=== PATIENT | male | born 1995 | race Caucasian/White ===

== ENCOUNTER 2016-07-03 00:32 | Emergency (ER) | payer MEDICAID ==
--- NOTE | 2016-07-03 00:58 | Emergency Department Record ---
History of Present Illness - General Chief Complaint: General Stated Complaint: WANTS TUMOR IN CHEST CHECKED Time Seen by Provider: 07/03/16 00:51 Source: Patient Mode of Arrival: Ambulatory Limitations: No limitations - History of Present Illness Initial comments: The patient is here due to wanting a tumor in his chest checked out. He was told he had a fatty benign tumor under his L nipple 4 years ago. 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 He denies any pain or discomfort. Onset/Timin -: Month(s) Location: Left, Chest Radiation: Non-Radiating Consistency: Constant - Related Data Home Medications Medication Instructions Recorded Confirmed Last Taken No Home Med [NO HOME MEDS] 12/02/14 07/03/16 Unknown Allergies Allergy/AdvReac Type Severity Reaction Status Date / Time acetaminophen [From Tylenol] Allergy ITCHING Verified 12/02/14 18:51 codeine Allergy ITCHING Verified 12/02/14 18:51 ibuprofen [From Motrin] Allergy ITCHING Verified 12/02/14 18:51 tramadol Allergy HIVES Verified 12/02/14 18:52 Travel Screening - Travel/Exposure Within Last 30 Days Have you traveled within the last 30 days?: No - Travel Symptoms Symptom Screening: None Review of Systems Constitutional: Denies: Chills, Fever Eyes: Denies: Eye discharge ENT: Denies: Congestion Respiratory: Denies: Cough, Dyspnea Past Medical History - SOCIAL HISTORY Smoking Status: Current every day smoker Drug Use: None Drug Use Detail:: Marijuana - RESPIRATORY Hx Respiratory Disorders: No - CARDIOVASCULAR Hx Cardio Disorders: No - NEURO Hx Neuro Disorders: No - GI Hx GI Disorders: No - Hx Genitourinary Disorders: No - ENDOCRINE Hx Endocrine Disorders: No - MUSCULOSKELETAL Hx Musculoskeletal Disorders: No - PSYCH Hx Psych Problems: Yes Hx Anxiety: Yes - HEMATOLOGY/ONCOLOGY Hx Hematology/Oncology Disorders: No Comment:: bi-polar Family Medical History Any Significant Family History?: Yes Hx Alcohol Use: Father Physical Exam - General General Appearance: Alert, Oriented x3, Cooperative, No acute distress - Head Head exam: Atraumatic, Normocephalic, Normal inspection - Eye Eye exam: Normal appearance, PERRL - Neck Neck exam: Normal inspection, Full ROM. negative: Tenderness - Respiratory Respiratory exam: Normal lung sounds bilaterally. negative: Chest wall tenderness (There is a 1x 2 cm soft nontender easily movable mass under the L nipple. There is no overlying swelling, erythema or bruising.), Respiratory distress - Cardiovascular Cardiovascular Exam: Regular rate, Normal rhythm, Normal heart sounds - GI/Abdominal GI/Abdominal exam: Soft, Normal bowel sounds. negative: Tenderness Course Vital Signs 07/03/16 00:50 Pulse Rate [ 109 H Pulse Ox Probe] Respiratory 18 Rate Blood Pressure 125/72 [Left Arm] Pulse Ox 96 - Reevaluation(s) Reevaluation #1: I did review the patient's US from 2012 and it did demonstrate a 1x2 cm fatty tumor. I explained to the patient that he will need to see a PCP to get another US ordered. The patient understands and will comply. 07/03/16 01:02 Disposition Disposition: Discharge Clinical Impression: Chest wall mass Disposition: Home, Self-Care Condition: (1) Good Instructions: Chest Wall Pain (ED) Additional Instructions: Please see a family doctor for further evaluation and to have another US ordered of your L breast. Forms: Patient Portal Access Time of Disposition: 01:04
== END 2016-07-03 01:20 | disposition home or self-care (01) ==
LOC: ER 00:32
DX: R22.2 Localized swelling, mass and lump, trunk (principal)
CPT/HCPCS: 99282

== ENCOUNTER 2016-07-20 16:28 | Emergency (ER) | payer MEDICAID ==
--- NOTE | 2016-07-20 16:58 | Emergency Department Record ---
History of Present Illness - General Chief Complaint: Laceration(s) Stated Complaint: LAC ON FINGER Time Seen by Provider: 07/20/16 16:49 Source: Patient Mode of Arrival: Ambulatory Limitations: No limitations - History of Present Illness Initial Commments: The patient is here due to wanting his L hand 2nd finger sutured. He injured his L 2nd finger 5 days ago and sustained a laceration dorsally just distal to the PIP joint. He went somewhere in [place] and had it sutured either 5 or 7 days ago. He also was told he had a tendon laceration and needs to see a surgeon. The sutures fell out today and the laceration is opening up minimally and now he wants it re-sutured. He denies any pain or any new issues. Onset/Timin -: Week(s) Location: Other Place: Work Context: Accidental Associated Symptoms: None - [place] Coma Scale Eye Response: (4) Open spontaneously Motor Response: (6) Obeys commands Verbal Response: (5) Oriented [place] Total: 15 - Related Data Hx Tetanus Toxoid Vaccination: Yes Year of Tetanus Vaccination: 2014 Patient Tetanus UTD (within 5 yrs): Yes Home Medications Medication Instructions Recorded Confirmed Last Taken No Home Med [NO HOME MEDS] 12/02/14 07/20/16 Unknown Allergies Allergy/AdvReac Type Severity Reaction Status Date / Time acetaminophen [From Tylenol] Allergy ITCHING Verified 07/20/16 16:48 codeine Allergy ITCHING Verified 07/20/16 16:48 ibuprofen [From Motrin] Allergy ITCHING Verified 07/20/16 16:48 tramadol Allergy HIVES Verified 07/20/16 16:48 Travel Screening - Travel/Exposure Within Last 30 Days Have you traveled within the last 30 days?: No Past Medical History - SOCIAL HISTORY Smoking Status: Current every day smoker Alcohol Use: None Drug Use: None - RESPIRATORY Hx Respiratory Disorders: No - CARDIOVASCULAR Hx Cardio Disorders: No - NEURO Hx Neuro Disorders: No - GI Hx GI Disorders: No - Hx Genitourinary Disorders: No - ENDOCRINE Hx Endocrine Disorders: No - MUSCULOSKELETAL Hx Musculoskeletal Disorders: No - PSYCH Hx Psych Problems: Yes Hx Anxiety: Yes - HEMATOLOGY/ONCOLOGY Hx Hematology/Oncology Disorders: No Comment:: bi-polar Family Medical History Any Significant Family History?: Yes Hx Alcohol Use: Father Physical Exam - General General Appearance: Alert, Cooperative, No acute distress - Head Head exam: Atraumatic, Normocephalic, Normal inspection - Eye Eye exam: Normal appearance, PERRL - Extremities Extremities exam: Tenderness (There is mild tenderness at the site but no signs of infection.). negative: Normal inspection, Full ROM (There is decreased extension of the L 2nd finger. There is a 21.5 cm superficial lac present that does not open up. ) Course Vital Signs 07/20/16 16:43 Temperature 98.5 F Pulse Rate 91 H Respiratory 16 Rate Blood Pressure 129/61 Pulse Ox 97 - Reevaluation(s) Reevaluation #1: The finger was steri-stripped without difficulty. He was advised to see the surgeon next week. 07/20/16 16:57 Disposition Disposition: Discharge Clinical Impression: Finger injury Qualifiers: Encounter type: sequela Laterality: left Qualified Code(s): S69.92XS - Unspecified injury of left wrist, hand and finger(s), sequela Disposition: Home, Self-Care Condition: (1) Good Instructions: Laceration (ED) Additional Instructions: Keep the laceration clean and dry for 2 days. Please see the hand surgeon as previously advised. Forms: Patient Portal Access Time of Disposition: 16:58
== END 2016-07-20 17:03 | disposition home or self-care (01) ==
LOC: ER 16:28
DX: S61.211D Laceration without foreign body of left index finger without damage to nail, subsequent encounter (principal); X58.XXXA Exposure to other specified factors, initial encounter; Y99.0 Civilian activity done for income or pay
CPT/HCPCS: 99282

== ENCOUNTER 2019-02-05 11:45 | Emergency (ER) | payer MEDICAID ==
[2019-02-05 12:43] LABS: ABSOLUTE NEUTROPHIL COUNT 7.71; BASO % 0.2 % (0-6); EOS % 1.7 % (0-6); GRAN % 65.1 % (47-80); HEMATOCRIT 51.9 % (42.0-52.0); HEMOGLOBIN 17.5 gm/dl (14.0-18.0); LYMPH % 19.8 % (16-45); MEAN CELL VOLUME 88.3 fl (81-97); MEAN CORPUSCULAR HGB CONC 33.7 g/dl (32-36); MEAN PLATELET VOLUME 10.6 fl (7.4-10.4); MONO % 13.2 % (0-9); PLATELET COUNT 289 K/uL (130-400); RED BLOOD COUNT 5.88 M/uL (4.40-5.70); RED CELL DISTRIBUTION WIDTH 13.7 % (11.5-14.5); WHITE BLOOD COUNT W/O DIFF 11.8 K/uL (4.2-12.2)
[2019-02-05 12:45] LABS: MEAN CORPUSCULAR HEMOGLOBIN 29.7 pg (27-33)
[2019-02-05 12:52] LABS: BLOOD UREA NITROGEN 16 mg/dL (6-20); EST GLOMERULAR FILTRATION RATE > 60 mL/min
[2019-02-05 12:55] LABS: GLUCOSE,RANDOM 120 mg/dL (74-109)
--- NOTE | 2019-02-05 13:37 | Emergency Department Record ---
History of Present Illness - General Chief complaint: ENT Stated complaint: MOUTH SORE Time Seen by Provider: 02/05/19 13:04 Source: Patient, RN notes reviewed Mode of Arrival: Ambulatory - History of Present Illness Initial comments: patient said he bite his lip or burnt his lip two days ago with hot food and he has a large macerated area by the commisure of the lip and inside of the right cheek 4 cm by4 cm. Patient not sure exactly what happened and he thinks he bit his cheek and he chews tobacco and he was drinking alcohol and using cocaine and meth. Patient states last dose of cocaine and meth was at 10 am. He states he has been using the cocaine and meth for two days. Onset/Timin -: Days(s) Severity scale (1-10): 6 Consistency: Constant - Related Data Home Medications Medication Instructions Recorded Confirmed Last Taken [place] Carbonate 300 mg PO BID 02/05/19 02/05/19 Unknown Allergies Allergy/AdvReac Type Severity Reaction Status Date / Time acetaminophen [From Tylenol] Allergy ITCHING Verified 02/05/19 12:00 codeine Allergy ITCHING Verified 02/05/19 12:00 ibuprofen [From Motrin] Allergy ITCHING Verified 02/05/19 12:00 tramadol Allergy HIVES Verified 02/05/19 12:00 Travel Screening - Travel/Exposure Within Last 30 Days Have you traveled within the last 30 days?: No - Travel/Exposure Within Last Year Have you traveled outside the [place] in the last year?: No - Additonal Travel Details Have you been exposed to anyone with a communicable illness?: No - Travel Symptoms Symptom Screening: None Review of Systems Reviewed: No additional complaints except as noted below Constitutional: Reports: As per HPI. Denies: Chills, Fever, Malaise, Night sweats, Weakness, Weight change Eyes: Reports: As per HPI. Denies: Eye discharge, Eye pain, Photophobia, Vision change ENT: Reports: As per HPI. Denies: Congestion, Dental pain, Ear pain, Epistaxis, Hearing loss, Throat pain Respiratory: Reports: As per HPI. Denies: Cough, Dyspnea, Hemoptysis, Stridor, Wheezes Cardiovascular: Reports: As per HPI, Arrhythmia. Denies: Chest pain, Dyspnea on exertion, Edema, Murmurs, Orthopnea, Palpitations, Paroxysmal nocturnal dyspnea, Rheumatic Fever, Syncope Endocrine: Reports: As per HPI. Denies: Fatigue, Heat or cold intolerance, Polydipsia, Polyuria Gastrointestinal: Reports: As per HPI. Denies: Abdominal pain, Constipation, Diarrhea, Hematemesis, Hematochezia, Melena, Nausea, Vomiting Genitourinary: Reports: As per HPI. Denies: Dysuria, Frequency, Hematuria, Incontinence, Retention, Testicular pain, Testicular mass, Urgency Musculoskeletal: Reports: As per HPI. Denies: Arthralgia, Back pain, Gout, Joint swelling, Myalgia, Neck pain Skin: Reports: As per HPI. Denies: Bruising, Change in color, Change in hair/nails, Lesions, Pruritus, Rash Neurological: Reports: As per HPI. Denies: Abnormal gait, Confusion, Headache, Numbness, Paresthesias, Seizure, Tingling, Tremors, Vertigo, Weakness Psychiatric: Reports: As per HPI. Denies: Anxiety, Auditory hallucinations, Depression, Homicidal thoughts, Suicidal thoughts, Visual hallucinations Hematological/Lymphatic: Reports: As per HPI. Denies: Anemia, Blood Clots, Easy bleeding, Easy bruising, Swollen glands Past Medical History - SOCIAL HISTORY Smoking Status: Former smoker Alcohol Use: Heavy Drug Use: Rare - RESPIRATORY Hx Respiratory Disorders: No - CARDIOVASCULAR Hx Cardio Disorders: No - NEURO Hx Neuro Disorders: No - GI Hx GI Disorders: No - Hx Genitourinary Disorders: No - ENDOCRINE Hx Endocrine Disorders: No - MUSCULOSKELETAL Hx Musculoskeletal Disorders: No - PSYCH Hx Psych Problems: Yes Hx Anxiety: Yes - HEMATOLOGY/ONCOLOGY Hx Hematology/Oncology Disorders: No Comment:: bi-polar Family Medical History Any Significant Family History?: No Hx Alcohol Use: Father Physical Exam - General General Appearance: Alert, Oriented x3, Cooperative, No acute distress - Head Head exam: Normal inspection - Eye Eye exam: Normal appearance, PERRL Pupils: Normal accommodation - ENT ENT exam: Mucous membranes moist, Normal external ear exam, TM's normal bilaterally, Other (large macerated burn inside of mouth by right commisure lower lip and inside of right cheek) Ear exam: Normal external inspection. negative: External canal tenderness Nasal Exam: Normal inspection. negative: Discharge, Sinus tenderness Mouth exam: Normal external inspection, Tongue normal Teeth exam: Normal inspection. negative: Dental caries Throat exam: Normal inspection. negative: Tonsillar erythema, Tonsillar exudate - Neck Neck exam: Normal inspection, Full ROM. negative: Tenderness - Respiratory Respiratory exam: Normal lung sounds bilaterally. negative: Respiratory distress - Cardiovascular Cardiovascular Exam: Regular rate, Normal rhythm, Normal heart sounds - GI/Abdominal GI/Abdominal exam: Soft, Normal bowel sounds. negative: Tenderness - Rectal Rectal exam: Deferred - exam: Deferred - Extremities Extremities exam: Normal inspection, Full ROM, Normal capillary refill. negative: Tenderness - Back Back exam: Reports: Normal inspection, Full ROM. Denies: Muscle spasm, Rash noted, Tenderness - Neurological Neurological exam: Alert, Normal gait, Oriented X3, Reflexes normal - Psychiatric Psychiatric exam: Normal affect, Normal mood - Skin Skin exam: Dry, Intact, Normal color, Warm Course Vital Signs 02/05/19 02/05/19 11:51 12:28 Temperature 98.3 F Pulse Rate 145 H Pulse Rate [ 144 H Left] Respiratory 20 24 Rate Blood Pressure 164/115 Blood Pressure 172/120 [Left Arm] Pulse Ox 97 99 - Reevaluation(s) Reevaluation #1: discussed case with [facility] and will transport by ambulance because no reliable ride and use of cocaine and meth. Patient also needs plastic and burn Dr to evaluate. Discussed case with Dr Wesley Day Dr. 02/05/19 13:59 02/05/19 14:02 02/05/19 14:03 Medical Decision Making - Data Complexity MDM Data: EKG Ordered and/or Reviewed (EKG sinus tachcardia ,No acute changes) - Lab Data Result diagrams: 02/05/19 12:20 02/05/19 12:20 Lab Results 02/05/19 02/05/19 Range/Units 12:20 12:20 WBC 11.8 (4.2-12.2) K/uL RBC 5.88 H (4.40-5.70) M/uL Hgb 17.5 (14.0-18.0) gm/dl Hct 51.9 (42.0-52.0) % MCV 88.3 (81-97) fl MCH 29.7 (27-33) pg MCHC 33.7 (32-36) g/dl RDW 13.7 (11.5-14.5) % Plt Count 289 (130-400) K/uL MPV 10.6 H (7.4-10.4) fl Gran % 65.1 (47-80) % Lymphocytes % 19.8 (16-45) % Monocytes % 13.2 H (0-9) % Eosinophils % 1.7 (0-6) % Basophils % 0.2 (0-6) % Absolute Neutrophils 7.71 Sodium 141 (136-145) mmol/L Potassium 3.7 (3.4-4.5) mmol/L Chloride 97 L (98-107) mmol/L Carbon Dioxide 27.0 (22-29) mmol/L Anion Gap 17.0 H (7-16) BUN 16 (6-20) mg/dL Creatinine 1.0 (0.7-1.2) mg/dL Estimated GFR > 60 mL/min Random Glucose 120 H (74-109) mg/dL Calcium 10.4 H (8.6-10.0) mg/dL Troponin T < 0.010 (0-0.010) ng/mL Disposition Clinical Impression: Tachycardia, Bipolar 1 disorder Burn of lip Qualifiers: Encounter type: initial encounter Burn degree: full thickness (3rd degree) Qualified Code(s): T20.32XA - Burn of third degree of lip(s), initial encounter Disposition: Acute Care Hospital Transfer Condition: (2) Stable Additional Instructions: transport to [facility] by ambulance Forms: Patient Portal Access Time of Disposition: 14:01 Quality - Quality Measures Quality Measures: N/A - Blood Pressure Screening Does Patient Have Any of the Following: No Blood Pressure Classification: Hypertensive Reading Systolic Measurement: 164 Diastolic Measurement: 115 Screening for High Blood Pressure: < First Hypertensive BP, F/U Documented > [G8950] First Hypertensive Follow-up Interventions: Referral to alternative/primary care provider.
[2019-02-05 13:50] LABS: URINE APPEARANCE CLEAR; URINE BILIRUBIN SMALL (NEGATIVE); URINE BLOOD NEGATIVE (NEGATIVE); URINE COLOR YELLOW; URINE GLUCOSE (UA) NEGATIVE (NEGATIVE); URINE KETONE 40 mg/dL (NEGATIVE); URINE LEUKOCYTE ESTERASE NEGATIVE (NEGATIVE); URINE NITRITE NEGATIVE (NEGATIVE); URINE PROTEIN NEGATIVE (NEGATIVE)
[2019-02-05 13:53] LABS: AMPHETAMINE SCREEN URINE NOT DETECTED; BARBITURATE SCREEN URINE NOT DETECTED; BENZODIAZEPINE SCREEN URINE NOT DETECTED; COCAINE SCREEN URINE NOT DETECTED; METHADONE SCREEN URINE NOT DETECTED; METHAMPHETAMINE SCREEN NOT DETECTED; OPIATE SCREEN URINE NOT DETECTED; OXYCODONE SCREEN URINE NOT DETECTED; PHENCYCLIDINE SCREEN URINE NOT DETECTED; PROPOXYPHENE SCREEN URINE NOT DETECTED; THC SCREEN URINE NOT DETECTED; TRICYCLIC ANTIDEPRESSANT SCRN NOT DETECTED
== END 2019-02-05 14:55 | disposition short-term general hospital (02) ==
LOC: ER 11:45
DX: T20.32XA Burn of third degree of lip(s), initial encounter (principal); R00.0 Tachycardia, unspecified; F31.9 Bipolar disorder, unspecified; X10.1XXA Contact with hot food, initial encounter; F14.10 Cocaine abuse, uncomplicated; F15.90 Other stimulant use, unspecified, uncomplicated
CPT/HCPCS: 80048; 80305; 80320; 81003; 84484; 85025; 93005; 93010; 99285

== ENCOUNTER 2019-02-06 20:03 | Emergency (ER) | payer MEDICAID ==
[2019-02-06] MEDS ORDERED: LORAZEPAM 2 MG/ML VIAL IV ONE (20:26)
[2019-02-06 20:36] LABS: ABSOLUTE NEUTROPHIL COUNT 7.63; BASO % 0.2 % (0-6); EOS % 1.4 % (0-6); GRAN % 65.8 % (47-80); HEMATOCRIT 46.7 % (42.0-52.0); HEMOGLOBIN 16.4 gm/dl (14.0-18.0); LYMPH % 20.9 % (16-45); MEAN CELL VOLUME 86.5 fl (81-97); MEAN CORPUSCULAR HEMOGLOBIN 30.4 pg (27-33); MEAN CORPUSCULAR HGB CONC 35.1 g/dl (32-36); MEAN PLATELET VOLUME 10.4 fl (7.4-10.4); MONO % 11.7 % (0-9); PLATELET COUNT 293 K/uL (130-400); RED CELL DISTRIBUTION WIDTH 13.1 % (11.5-14.5); WHITE BLOOD COUNT W/O DIFF 11.6 K/uL (4.2-12.2)
[2019-02-06] MEDS ORDERED: OLANZAPINE 10 MG VIAL IM ONE ×2 (20:40→22:06)
[2019-02-06 20:48] LABS: BLOOD UREA NITROGEN 14 mg/dL (6-20); CREATININE 0.9 mg/dL (0.7-1.2); EST GLOMERULAR FILTRATION RATE > 60 mL/min
[2019-02-06 20:49] LABS: TOTAL PROTEIN 7.8 g/dL (6.6-8.7)
[2019-02-06 20:51] LABS: GLUCOSE,RANDOM 96 mg/dL (74-109)
[2019-02-06 20:53] LABS: ALB/GLOB RATIO 1.6 (1.1-1.8); ALBUMIN 4.8 g/dL (4.0-5.0); ALKALINE PHOSPHATASE 96 U/L (40-129); ALT/SGPT 17 U/L (<41); AST/SGOT 26 U/L (10.0-50.0)
[2019-02-06 20:54] LABS: CREATINE PHOSPHOKINASE 547 U/L (39-308)
[2019-02-06] MEDS ORDERED: 0.9 % SODIUM CHLORIDE 1,000 ML BAG IV ONE (21:08)
[2019-02-06 21:36] LABS: ALCOHOL 0.01 g/dL (0-0.010)
[2019-02-06 21:48] LABS: THYROID STIMULATING HORMONE 1.33 uIU/mL (0.270-4.20)
--- NOTE | 2019-02-06 22:07 | Emergency Department Record ---
History of Present Illness - General Chief complaint: Pain Stated complaint: PAIN Time Seen by Provider: 02/06/19 20:26 Source: Patient Mode of Arrival: Ambulatory Limitations: No limitations - History of Present Illness Initial comments: pt came in screaming that he is in pain all over his body. he had a recent injury to his lip and was d/cd from [facility] today. he is bipolar and not taking his meds. he is agitated and swearing. he is talking about feeling like murdering people today at [facility] and stated he could do it when he's mad. Complaint: Extremity pain -: Days(s) History of Same: No Quality: Sharp Consistency: Intermittent Improves with: Medication Associated Symptoms: Denies other symptoms - Related Data Allergies Allergy/AdvReac Type Severity Reaction Status Date / Time acetaminophen [From Tylenol] Allergy ITCHING Verified 02/05/19 12:00 codeine Allergy ITCHING Verified 02/05/19 12:00 ibuprofen [From Motrin] Allergy ITCHING Verified 02/05/19 12:00 tramadol Allergy HIVES Verified 02/05/19 12:00 Travel Screening - Travel/Exposure Within Last 30 Days Have you traveled within the last 30 days?: No Review of Systems Reviewed: No additional complaints except as noted below Constitutional: Reports: As per HPI. Denies: Chills, Fever, Malaise, Night sweats, Weakness, Weight change Eyes: Reports: As per HPI. Denies: Eye discharge, Eye pain, Photophobia, Vision change ENT: Reports: As per HPI. Denies: Congestion, Dental pain, Ear pain, Epistaxis, Hearing loss, Throat pain Respiratory: Reports: As per HPI. Denies: Cough, Dyspnea, Hemoptysis, Stridor, Wheezes Cardiovascular: Reports: As per HPI. Denies: Arrhythmia, Chest pain, Dyspnea on exertion, Edema, Murmurs, Orthopnea, Palpitations, Paroxysmal nocturnal dyspnea, Rheumatic Fever, Syncope Endocrine: Reports: As per HPI. Denies: Fatigue, Heat or cold intolerance, Polydipsia, Polyuria Gastrointestinal: Reports: As per HPI. Denies: Abdominal pain, Constipation, Diarrhea, Hematemesis, Hematochezia, Melena, Nausea, Vomiting Genitourinary: Reports: As per HPI. Denies: Dysuria, Frequency, Hematuria, Incontinence, Retention, Testicular pain, Testicular mass, Urgency Musculoskeletal: Reports: As per HPI. Denies: Arthralgia, Back pain, Gout, Joint swelling, Myalgia, Neck pain Skin: Reports: As per HPI. Denies: Bruising, Change in color, Change in hair/nails, Lesions, Pruritus, Rash Neurological: Reports: As per HPI. Denies: Abnormal gait, Confusion, Headache, Numbness, Paresthesias, Seizure, Tingling, Tremors, Vertigo, Weakness Psychiatric: Reports: As per HPI. Denies: Anxiety, Auditory hallucinations, Depression, Homicidal thoughts, Suicidal thoughts, Visual hallucinations Hematological/Lymphatic: Reports: As per HPI. Denies: Anemia, Blood Clots, Easy bleeding, Easy bruising, Swollen glands Past Medical History - SOCIAL HISTORY Smoking Status: Former smoker Alcohol Use: Occasional Drug Use: Occasional Drug Use Detail:: Cocaine, Marijuana - RESPIRATORY Hx Respiratory Disorders: No - CARDIOVASCULAR Hx Cardio Disorders: No - NEURO Hx Neuro Disorders: No - GI Hx GI Disorders: No - Hx Genitourinary Disorders: No - ENDOCRINE Hx Endocrine Disorders: No - MUSCULOSKELETAL Hx Musculoskeletal Disorders: No - PSYCH Hx Psych Problems: Yes Hx Anxiety: Yes - HEMATOLOGY/ONCOLOGY Hx Hematology/Oncology Disorders: No Comment:: bi-polar Family Medical History Any Significant Family History?: Yes Hx Alcohol Use: Father Physical Exam - General General Appearance: Alert, Oriented x3, Cooperative, Moderate distress - Head Head exam: Normal inspection - Eye Eye exam: Normal appearance, PERRL, EOMI Pupils: Normal accommodation - ENT ENT exam: Normal exam, Mucous membranes moist, Normal external ear exam, Normal orophraynx Ear exam: Normal external inspection. negative: External canal tenderness Nasal Exam: Normal inspection. negative: Discharge, Sinus tenderness Mouth exam: Tongue normal, Other (avulsion of r lower corner of lip healing) Teeth exam: Normal inspection. negative: Dental caries Throat exam: Normal inspection. negative: Tonsillar erythema, Tonsillar exudate - Neck Neck exam: Normal inspection, Full ROM. negative: Tenderness - Respiratory Respiratory exam: Normal lung sounds bilaterally. negative: Respiratory distress - Cardiovascular Cardiovascular Exam: Regular rate, Normal rhythm, Normal heart sounds - GI/Abdominal GI/Abdominal exam: Soft, Normal bowel sounds. negative: Tenderness - Rectal Rectal exam: Deferred - exam: Deferred - Extremities Extremities exam: Normal inspection, Full ROM, Normal capillary refill. negative: Tenderness - Back Back exam: Reports: Normal inspection, Full ROM. Denies: Muscle spasm, Rash noted, Tenderness - Neurological Neurological exam: Alert, CN II-XII intact, Normal gait, Oriented X3 - Psychiatric Psychiatric exam: Agitated, Anxious, Homicidal ideation, Manic - Skin Skin exam: Dry, Intact, Normal color, Warm Course Vital Signs 02/06/19 02/06/19 20:15 20:21 Pulse Rate [ 157 H 133 H Pulse Ox Probe] Respiratory 24 28 H Rate Blood Pressure 121/74 121/76 [Right Arm] Pulse Ox 97 97 - Reevaluation(s) Reevaluation #1: 02/06/19 22:58 pt was agitated and police were called. pt calmed w ativan and zyprexa. 02/06/19 23:00 cert and ap were filled out Reevaluation #2: 02/07/19 03:43 pt would sleep until meds wore off and then would arouse and become agitated. er police assisted. [facility] will not accept pt until 0600 Medical Decision Making - Lab Data Result diagrams: 02/06/19 20:10 02/06/19 20:10 Lab Results 02/06/19 02/06/19 02/06/19 Range/Units 20:10 20:10 20:10 WBC 11.6 (4.2-12.2) K/uL RBC 5.40 (4.40-5.70) M/uL Hgb 16.4 (14.0-18.0) gm/dl Hct 46.7 (42.0-52.0) % MCV 86.5 (81-97) fl MCH 30.4 (27-33) pg MCHC 35.1 (32-36) g/dl RDW 13.1 (11.5-14.5) % Plt Count 293 (130-400) K/uL MPV 10.4 (7.4-10.4) fl Gran % 65.8 (47-80) % Lymphocytes % 20.9 (16-45) % Monocytes % 11.7 H (0-9) % Eosinophils % 1.4 (0-6) % Basophils % 0.2 (0-6) % Absolute Neutrophils 7.63 Sodium 139 (136-145) mmol/L Potassium 3.8 (3.4-4.5) mmol/L Chloride 97 L (98-107) mmol/L Carbon Dioxide 22.0 (22-29) mmol/L Anion Gap 20.0 H (7-16) BUN 14 (6-20) mg/dL Creatinine 0.9 (0.7-1.2) mg/dL Estimated GFR > 60 mL/min Random Glucose 96 (74-109) mg/dL Calcium 10.4 H (8.6-10.0) mg/dL Total Bilirubin 0.70 (0.2-1.0) mg/dL AST 26 (10.0-50.0) U/L ALT 17 (<41) U/L Alkaline Phosphatase 96 (40-129) U/L Creatine Kinase 547 H (39-308) U/L Troponin T < 0.010 (0-0.010) ng/mL Total Protein 7.8 (6.6-8.7) g/dL Albumin 4.8 (4.0-5.0) g/dL Globulin 3.0 (1.4-4.8) gm/dL Albumin/Globulin Ratio 1.6 (1.1-1.8) TSH 1.33 (0.270-4.20) uIU/mL Ethyl Alcohol 0.010 (0-0.010) g/dL Disposition Disposition: Transfer Clinical Impression: Bipolar 1 disorder Psychosis Qualifiers: Psychosis type: schizoaffective disorder Schizoaffective disorder type: bipolar Qualified Code(s): F25.0 - Schizoaffective disorder, bipolar type Disposition: Acute Care Hospital Transfer Transfer To: [facility] Reason For Transfer: psychosis Accepting Physician: psych Time Discussed w/Accepting Physician: 02:00 Forms: Patient Portal Access Quality - Quality Measures Quality Measures: N/A - Blood Pressure Screening Does Patient Have Any of the Following: No Blood Pressure Classification: Hypertensive Reading Systolic Measurement: 150 Diastolic Measurement: 55 Screening for High Blood Pressure: < First Hypertensive BP, F/U Documented > [G8950] First Hypertensive Follow-up Interventions: Follow-up with rescreen GT 1 day and LT 4 weeks.
[2019-02-06 22:36] LABS: URINE APPEARANCE CLEAR; URINE BILIRUBIN SMALL (NEGATIVE); URINE BLOOD NEGATIVE (NEGATIVE); URINE COLOR YELLOW; URINE GLUCOSE (UA) NEGATIVE (NEGATIVE); URINE KETONE 40 mg/dL (NEGATIVE); URINE LEUKOCYTE ESTERASE NEGATIVE (NEGATIVE); URINE NITRITE NEGATIVE (NEGATIVE); URINE PROTEIN NEGATIVE (NEGATIVE)
[2019-02-06 22:41] LABS: AMPHETAMINE SCREEN URINE NOT DETECTED; BARBITURATE SCREEN URINE NOT DETECTED; BENZODIAZEPINE SCREEN URINE NOT DETECTED; COCAINE SCREEN URINE NOT DETECTED; METHADONE SCREEN URINE NOT DETECTED; METHAMPHETAMINE SCREEN NOT DETECTED; OPIATE SCREEN URINE NOT DETECTED; OXYCODONE SCREEN URINE NOT DETECTED; PHENCYCLIDINE SCREEN URINE NOT DETECTED; PROPOXYPHENE SCREEN URINE NOT DETECTED; THC SCREEN URINE NOT DETECTED; TRICYCLIC ANTIDEPRESSANT SCRN NOT DETECTED
[2019-02-07] MEDS ORDERED: OLANZAPINE 10 MG VIAL IM ONE ×2 (03:45→05:35)
== END 2019-02-07 05:51 | disposition short-term general hospital (02) ==
LOC: ER 20:03
DX: F25.0 Schizoaffective disorder, bipolar type (principal); R52 Pain, unspecified
CPT/HCPCS: 80053; 80305; 80320; 81003; 82550; 84443; 84484; 85025; 96372; 96374; 99285; J7030

== ENCOUNTER 2019-03-01 16:55 | Emergency (ER) | payer MEDICAID ==
[2019-03-01] MEDS ORDERED: CEFTRIAXONE 1GM/50ML BAG 1 GM/50 ML BAG IVPB ONE (17:45)
--- NOTE | 2019-03-01 17:59 | Emergency Department Record ---
History of Present Illness - General Chief complaint: Abscess Stated complaint: BOIL ON FOREHEAD Time Seen by Provider: 03/01/19 17:39 Source: Patient Mode of Arrival: Ambulatory Limitations: No limitations - History of Present Illness Initial comments: pt states he had a zit on his forehead this am which he tried to pop. he then used a dirty knife and dirty dart to try to pop it. he now has swelling over his forehead and eyelids. MD complaint: Abscess/boil Onset/Timin -: Hour(s) Hx Tetanus Toxoid Vaccination: Yes Year of Tetanus Vaccination: 2014 Location: Head Severity scale (1-10): 8 Quality: Burning Consistency: Constant Improves with: None Worsens with: Palpation Context: Other Associated symptoms: Denies other symptoms Treatments Prior to Arrival: Attempted to drain pus at home - Related Data Home Medications Medication Instructions Recorded Confirmed Last Taken Clonazepam 0.5 mg PO ASDIR 03/01/19 03/01/19 Unknown Allergies Allergy/AdvReac Type Severity Reaction Status Date / Time acetaminophen [From Tylenol] Allergy ITCHING Verified 02/05/19 12:00 codeine Allergy ITCHING Verified 02/05/19 12:00 ibuprofen [From Motrin] Allergy ITCHING Verified 02/05/19 12:00 tramadol Allergy HIVES Verified 02/05/19 12:00 Travel Screening - Travel/Exposure Within Last 30 Days Have you traveled within the last 30 days?: No Review of Systems Reviewed: No additional complaints except as noted below Constitutional: Reports: As per HPI. Denies: Chills, Fever, Malaise, Night sweats, Weakness, Weight change Eyes: Reports: As per HPI. Denies: Eye discharge, Eye pain, Photophobia, Vision change ENT: Reports: As per HPI. Denies: Congestion, Dental pain, Ear pain, Epistaxis, Hearing loss, Throat pain Respiratory: Reports: As per HPI. Denies: Cough, Dyspnea, Hemoptysis, Stridor, Wheezes Cardiovascular: Reports: As per HPI. Denies: Arrhythmia, Chest pain, Dyspnea on exertion, Edema, Murmurs, Orthopnea, Palpitations, Paroxysmal nocturnal dyspnea, Rheumatic Fever, Syncope Endocrine: Reports: As per HPI. Denies: Fatigue, Heat or cold intolerance, Polydipsia, Polyuria Gastrointestinal: Reports: As per HPI. Denies: Abdominal pain, Constipation, Diarrhea, Hematemesis, Hematochezia, Melena, Nausea, Vomiting Genitourinary: Reports: As per HPI. Denies: Dysuria, Frequency, Hematuria, Incontinence, Retention, Testicular pain, Testicular mass, Urgency Musculoskeletal: Reports: As per HPI. Denies: Arthralgia, Back pain, Gout, Joint swelling, Myalgia, Neck pain Skin: Reports: As per HPI. Denies: Bruising, Change in color, Change in hair/nails, Lesions, Pruritus, Rash Neurological: Reports: As per HPI. Denies: Abnormal gait, Confusion, Headache, Numbness, Paresthesias, Seizure, Tingling, Tremors, Vertigo, Weakness Psychiatric: Reports: As per HPI. Denies: Anxiety, Auditory hallucinations, Depression, Homicidal thoughts, Suicidal thoughts, Visual hallucinations Hematological/Lymphatic: Reports: As per HPI. Denies: Anemia, Blood Clots, Easy bleeding, Easy bruising, Swollen glands Past Medical History - SOCIAL HISTORY Smoking Status: Former smoker Alcohol Use: Occasional Drug Use Detail:: Other - RESPIRATORY Hx Respiratory Disorders: No - CARDIOVASCULAR Hx Cardio Disorders: No - NEURO Hx Neuro Disorders: No - GI Hx GI Disorders: No - Hx Genitourinary Disorders: No - ENDOCRINE Hx Endocrine Disorders: No - MUSCULOSKELETAL Hx Musculoskeletal Disorders: No - PSYCH Hx Psych Problems: Yes Hx Anxiety: Yes - HEMATOLOGY/ONCOLOGY Hx Hematology/Oncology Disorders: No Comment:: bi-polar Family Medical History Any Significant Family History?: Yes Hx Alcohol Use: Father Physical Exam - General General Appearance: Alert, Oriented x3, Cooperative, Mild distress - Head Head exam: Normal inspection Head exam detail: Other (swelling and erythema and tenderness across forehead) Image of Face/Head: 1 - swelling, tenderness,erythema - Eye Eye exam: Normal appearance, PERRL, EOMI Pupils: Normal accommodation - ENT ENT exam: Normal exam, Mucous membranes moist, Normal external ear exam, Normal orophraynx Ear exam: Normal external inspection. negative: External canal tenderness Nasal Exam: Normal inspection. negative: Discharge, Sinus tenderness Mouth exam: Normal external inspection, Tongue normal Teeth exam: Normal inspection. negative: Dental caries Throat exam: Normal inspection. negative: Tonsillar erythema, Tonsillar exudate - Neck Neck exam: Normal inspection, Full ROM. negative: Tenderness - Respiratory Respiratory exam: Normal lung sounds bilaterally. negative: Respiratory distress - Cardiovascular Cardiovascular Exam: Normal rhythm, Normal heart sounds, Tachycardia - GI/Abdominal GI/Abdominal exam: Soft, Normal bowel sounds. negative: Tenderness - Rectal Rectal exam: Deferred - exam: Deferred - Extremities Extremities exam: Normal inspection, Full ROM, Normal capillary refill. neg ative: Tenderness - Back Back exam: Reports: Normal inspection, Full ROM. Denies: Muscle spasm, Rash noted, Tenderness - Neurological Neurological exam: Alert, CN II-XII intact, Normal gait, Oriented X3 - Psychiatric Psychiatric exam: Normal affect, Normal mood - Skin Skin exam: Dry, Intact, Normal color, Warm Course Vital Signs 03/01/19 17:03 Temperature 98.3 F Pulse Rate 126 H Respiratory 20 Rate Blood Pressure 120/82 Pulse Ox 99 - Reevaluation(s) Reevaluation #1: 03/01/19 18:00 pt told that he will need to be transferred because of the severity of the infection. pt arguing regarding transfer. importence of this is being explained to pt. Reevaluation #2: 03/01/19 18:27 pt has decided to allow being transferred Medical Decision Making - Lab Data Result diagrams: 03/01/19 18:05 03/01/19 18:05 Disposition Disposition: Transfer Clinical Impression: Cellulitis and abscess of face Disposition: Acute Care Hospital Transfer Transfer To: [facility] Reason For Transfer: needs infectious disease and possible surgery Accepting Physician: dr zambrano Time Discussed w/Accepting Physician: 18:34 Forms: Patient Portal Access Quality - Quality Measures Quality Measures: N/A - Blood Pressure Screening Does Patient Have Any of the Following: No Blood Pressure Classification: Pre-Hypertensive BP Reading Systolic Measurement: 120 Diastolic Measurement: 82 Screening for High Blood Pressure: < Pre-Hypertensive BP, F/U Documented > [G8950] Pre-Hypertensive Follow-up Interventions: Follow-up with rescreen every year.
[2019-03-01] MEDS ORDERED: LORAZEPAM 2 MG/ML VIAL IV ONE (18:09)
[2019-03-01 18:20] LABS: ABSOLUTE NEUTROPHIL COUNT 15.39; MEAN CELL VOLUME 88.2 fl (81-97); MEAN CORPUSCULAR HEMOGLOBIN 30.1 pg (27-33); MEAN CORPUSCULAR HGB CONC 34.1 g/dl (32-36); MEAN PLATELET VOLUME 10.3 fl (7.4-10.4); PLATELET COUNT 287 K/uL (130-400); RED BLOOD COUNT 4.99 M/uL (4.40-5.70); RED CELL DISTRIBUTION WIDTH 13.1 % (11.5-14.5); WHITE BLOOD COUNT W/O DIFF 18.2 K/uL (4.2-12.2)
[2019-03-01 18:32] LABS: BLOOD UREA NITROGEN 13 mg/dL (6-20); CREATININE 0.9 mg/dL (0.7-1.2); EST GLOMERULAR FILTRATION RATE > 60 mL/min
[2019-03-01 18:35] LABS: GLUCOSE,RANDOM 81 mg/dL (74-109)
[2019-03-01 18:36] LABS: ANISOCYTOSIS 1+; PLATELET ESTIMATE NORMAL (NORMAL)
== END 2019-03-01 19:02 | disposition short-term general hospital (02) ==
LOC: ER 16:55
DX: L03.211 Cellulitis of face (principal); Z87.891 Personal history of nicotine dependence
CPT/HCPCS: 80048; 85027; 96365; 96375; 99285; J0696

== ENCOUNTER 2019-03-08 20:33 | Observation (INO) | payer MEDICAID ==
[2019-03-08] MEDS ORDERED: LORAZEPAM 2 MG/ML VIAL IV ONE (20:36)
--- NOTE | 2019-03-08 20:41 | Emergency Department Record ---
History of Present Illness - General Chief Complaint: Seizures Stated Complaint: SEIZURE Time Seen by Provider: 03/08/19 20:35 Source: Patient Mode of Arrival: Ambulatory Limitations: No limitations - History of Present Illness Initial Comments: 23 yo male presents to ED following a witnessed seizure lasting per EMS approximately 30 seconds in duration. Per the patient's father, patient has no history of seizures previously, patient came into the house stating that he felt weird, started to shake all over and was assisted to the ground by his father. Father denies injury, denies health problems other than Bipoalr disorder that the patient takes Bibo for. Patient is also being treated for cellulitis to the forehead with Keflex currently. EMS reports patient appeared post-ictal on arrival, now more alert and oriented. MD Complaint: Possible seizure Onset/Timin -: Minutes(s) Duration of Episode: 30 -: Second(s) Witnessed: Yes - by bystander Trauma: No Seizure History: None Place: Home Possible Precipitating Event: Drug use Associated Symptoms: Denies other symptoms Treatments Prior to Arrival: None - [place] Coma Scale Eye Response: (4) Open spontaneously Motor Response: (6) Obeys commands Verbal Response: (5) Oriented [place] Total: 15 - Related Data Allergies Allergy/AdvReac Type Severity Reaction Status Date / Time acetaminophen [From Tylenol] Allergy ITCHING Verified 02/05/19 12:00 codeine Allergy ITCHING Verified 02/05/19 12:00 ibuprofen [From Motrin] Allergy ITCHING Verified 02/05/19 12:00 tramadol Allergy HIVES Verified 02/05/19 12:00 Review of Systems Constitutional: Denies: Chills, Fever, Malaise, Night sweats Eyes: Denies: Eye discharge, Eye pain ENT: Denies: Congestion, Ear pain, Epistaxis Respiratory: Denies: Cough, Dyspnea Cardiovascular: Denies: Chest pain, Dyspnea on exertion Endocrine: Denies: Fatigue, Heat or cold intolerance Gastrointestinal: Denies: Abdominal pain, Nausea, Vomiting Genitourinary: Denies: Incontinence, Retention Musculoskeletal: Denies: Arthralgia, Back pain Skin: Denies: Bruising, Change in color Neurological: Reports: Headache, Seizure. Denies: Abnormal gait, Confusion Psychiatric: Denies: Anxiety Hematological/Lymphatic: Denies: Anemia, Blood Clots Past Medical History - SOCIAL HISTORY Smoking Status: Former smoker Drug Use Detail:: Other - RESPIRATORY Hx Respiratory Disorders: No - CARDIOVASCULAR Hx Cardio Disorders: No - NEURO Hx Neuro Disorders: No - GI Hx GI Disorders: No - Hx Genitourinary Disorders: No - ENDOCRINE Hx Endocrine Disorders: No - MUSCULOSKELETAL Hx Musculoskeletal Disorders: No - PSYCH Hx Psych Problems: Yes Hx Anxiety: Yes - HEMATOLOGY/ONCOLOGY Hx Hematology/Oncology Disorders: No Comment:: bi-polar Family Medical History Hx Alcohol Use: Father Physical Exam - General General Appearance: Alert, Oriented x3, Cooperative, Moderate distress Limitations: No limitations - Head Head exam: Atraumatic, Normocephalic, Normal inspection Head exam detail: negative: Abrasion, Contusion, Whiting's sign, General tenderness, Hematoma, Laceration - Eye Eye exam: Normal appearance. negative: Conjunctival injection, Periorbital swelling, Periorbital tenderness, Scleral icterus - ENT Ear exam: negative: Auricular hematoma, Auricular trauma Nasal Exam: negative: Active bleeding, Discharge, Dried blood, Foreign body Mouth exam: negative: Drooling, Laceration, Muffled voice, Tongue elevation - Neck Neck exam: Normal inspection. negative: Meningismus, Tenderness - Respiratory Respiratory exam: Normal lung sounds bilaterally. negative: Rales, Respiratory distress, Rhonchi, Stridor - Cardiovascular Cardiovascular Exam: Normal rhythm, Normal heart sounds, Tachycardia - GI/Abdominal GI/Abdominal exam: Soft. negative: Rebound, Rigid, Tenderness - Rectal Rectal exam: Deferred - exam: Deferred - Extremities Extremities exam: Normal inspection. negative: Pedal edema, Tenderness - Back Back exam: Denies: CVA tenderness (R), CVA tenderness (L) - Neurological Neurological exam: Alert, Normal gait, Oriented X3 - Psychiatric Psychiatric exam: Normal affect, Normal mood - Skin Skin exam: Normal color. negative: Abrasion Type of lesion: negative: abrasion Course - Reevaluation(s) Reevaluation #1: 03/08/19 20:42 EKG: Sinus tachycardia 140 Normal axis, normal intervals No acute ST-T wave changes Reevaluation #2: 03/08/19 21:08 Laboratory studies were reviewed and appear grossly unremarkable for an acute process except for the following: LA 6.1 CPK 294 AG 19 Laboratory results appear c/w seizure. Patient does report to nursing staff that he ran out of his Klonopin 3 days ago that he takes for anxiety Seizure and tachycardia are likely the result of benzodiazipine withdrawal. Reevaluation #3: 03/08/19 21:43 CT Brain: No acute process identified Reevaluation #4: 03/08/19 21:56 UDS was reviewed and appears negative for examination. Patient was reassessed, alert, oriented, on mobile phone at this time. Pulse is currently 133, will admit for probable benzodiazipine withdrawal with subsequent seizure. Reevaluation #5: 03/09/19 06:51 Case was discussed with Divya Salas NP, will accept admission at this time. Medical Decision Making - Lab Data Result diagrams: 03/08/19 20:40 03/08/19 20:40 Disposition Disposition: Admit Clinical Impression: Tonic clonic seizures Benzodiazepine withdrawal Qualifiers: Complication of substance-induced condition: with unspecified complication Qualified Code(s): F13.239 - Sedative, hypnotic or anxiolytic dependence with withdrawal, unspecified Disposition: Home, Self-Care Decision to Admit: Admit from ER Decision to Admit Date: 03/08/19 Decision to Admit Time: 21:58 Condition: (2) Stable Time of Disposition: 21:58 Quality - Quality Measures Quality Measures: N/A - Blood Pressure Screening Does Patient Have Any of the Following: No Blood Pressure Classification: Pre-Hypertensive BP Reading Systolic Measurement: 142 Diastolic Measurement: 85 Screening for High Blood Pressure: < Pre-Hypertensive BP, F/U Documented > [G8950] Pre-Hypertensive Follow-up Interventions: Referral to alternative/primary care [facility].
[2019-03-08] MEDS ORDERED: 0.9 % SODIUM CHLORIDE 1000ML 1,000 ML IV SCH (20:45)
[2019-03-08 20:53] LABS: BASO % 0.2 % (0-6); EOS % 0.4 % (0-6); GRAN % 68.2 % (47-80); HEMOGLOBIN 15.2 gm/dl (14.0-18.0); LYMPH % 20.1 % (16-45); MEAN CORPUSCULAR HEMOGLOBIN 30.4 pg (27-33); MEAN CORPUSCULAR HGB CONC 34.5 g/dl (32-36); MEAN PLATELET VOLUME 9.5 fl (7.4-10.4); MONO % 11.1 % (0-9); PLATELET COUNT 384 K/uL (130-400); RED CELL DISTRIBUTION WIDTH 13.3 % (11.5-14.5); WHITE BLOOD COUNT W/O DIFF 9.8 K/uL (4.2-12.2)
[2019-03-08 21:00] LABS: BLOOD UREA NITROGEN 10 mg/dL (6-20)
[2019-03-08 21:01] LABS: EST GLOMERULAR FILTRATION RATE > 60 mL/min; TOTAL PROTEIN 7.9 g/dL (6.6-8.7)
[2019-03-08 21:03] LABS: GLUCOSE,RANDOM 134 mg/dL (74-109)
[2019-03-08 21:06] LABS: ALB/GLOB RATIO 1.5 (1.1-1.8); ALBUMIN 4.7 g/dL (4.0-5.0); ALKALINE PHOSPHATASE 81 U/L (40-129); ALT/SGPT 22 U/L (<41); AST/SGOT 28 U/L (10.0-50.0); CREATINE PHOSPHOKINASE 294 U/L (39-308)
--- NOTE | 2019-03-08 21:30 | CT SCAN REPORT ---
EXAMINATION: HEAD WO CONTRAST EXAM DATE: 03/08/2019 9:13 PM TECHNIQUE: Noncontrast axial images were obtained to the brain. INDICATION: Possible seizure COMPARISON: 07/11/2010. ENCOUNTER: Not applicable HAND DOMINANCE: Unknown FINDINGS: The brain parenchyma is unremarkable for age. No loss of rader-white matter differentiation or sulcal effacement to indicate acute infarction. No evidence of intracranial mass. Hyperattenuation the arteries and veins appear symmetric, consistent with hemoconcentration or artifa ct. The ventricles, sulci, and subarachnoid spaces are unremarkable for age. The basal cisterns are paten t and there is no midline shift or herniation. No intra-axial or extra-axial fluid collection. No evidence of intracranial hemorrhage. The paranasal sinuses, mastoid air cells, and orbits are unremarkable. The calvarium is intact. IMPRESSION: 1. No CT evidence of intracranial hemorrhage or acute intracranial abnormality. Dictated by: MARTHA ZARCO MD on 03/08/2019 9:20 PM. .
[2019-03-08 21:43] LABS: AMPHETAMINE SCREEN URINE NOT DETECTED; BARBITURATE SCREEN URINE NOT DETECTED; BENZODIAZEPINE SCREEN URINE NOT DETECTED; COCAINE SCREEN URINE NOT DETECTED; METHADONE SCREEN URINE NOT DETECTED; METHAMPHETAMINE SCREEN NOT DETECTED; OPIATE SCREEN URINE NOT DETECTED; OXYCODONE SCREEN URINE NOT DETECTED; PHENCYCLIDINE SCREEN URINE NOT DETECTED; PROPOXYPHENE SCREEN URINE NOT DETECTED; THC SCREEN URINE NOT DETECTED; TRICYCLIC ANTIDEPRESSANT SCRN NOT DETECTED
[2019-03-09] MEDS ORDERED: CLONAZEPAM 0.5 MG PO SCH (00:17)
[2019-03-09] MEDS: 0.9 % SODIUM CHLORIDE 1000ML 1,000 ML IV SCH ×2 (00:59→05:02)
[2019-03-09] MEDS: CEPHALEXIN 500 MG PO SCH ×2 (01:26→06:22)
[2019-03-09 07:52] LABS: LACTIC ACID 0.7 mmol/L (0.5-2.2)
[2019-03-09 08:02] LABS: BLOOD UREA NITROGEN 7 mg/dL (6-20); CREATININE 0.8 mg/dL (0.7-1.2); EST GLOMERULAR FILTRATION RATE > 60 mL/min; GLUCOSE,RANDOM 85 mg/dL (74-109)
[2019-03-09] MEDS ORDERED: LITHIUM CARBONATE 450 MG PO SCH (10:00)
--- NOTE | 2019-03-09 10:10 | History & Physical ---
History of Present Illness - Date of Service Date of Service for History & Physical: 03/09/19 - History of Present Illness Admitting Diagnosis: Benzodiazipine withdrawal. Generalized Tonic-Clonic Seizure History of Present Illness: 23 year old male patient presented to ED after having witnessed seizure activity. Patient reports no history of seizures in the past. Patient's seizure was witnessed by his father, lasting approximately 30 seconds. Patient was post-ictal upon EMS arrival. Patient denied any injury from the seizure. Patient has had a couple recent hospital admissions. He had a psychiatric admission over a month ago, where he was started on [place] and Klonopin for Bipolar and anxiety. Patient was then admitted to [facility] 10 days ago for cellulitis of the face. Patient states he has been out of the Klonopin for 3-4 days. Has noted increased anxiety, shaking, and tremors since then. Patient reports intermittent benzo use for several years for treatment of mental illness. Patient does not currently have a PCP, has his medications managed by [facility]. Patient also admits to occasional meth and cocaine use, with his last use 3 days ago. 03/09/19: A&O x 4, reports no further seizure activity. Denies any neuro deficits, no complaints today. Travel Screening - Travel/Exposure Within Last 30 Days Have you traveled within the last 30 days?: No - Travel/Exposure Within Last Year Have you traveled outside the [place] in the last year?: No - Additonal Travel Details Have you been exposed to anyone with a communicable illness?: No - Travel Symptoms Symptom Screening: None Review of Systems Reviewed: No additional complaints except as noted below Constitutional: Denies: Chills, Fever, Malaise, Night sweats Eyes: Denies: Eye discharge, Eye pain ENT: Denies: Congestion, Ear pain, Epistaxis Respiratory: Denies: Cough, Dyspnea Cardiovascular: Denies: Chest pain, Dyspnea on exertion Endocrine: Denies: Fatigue, Heat or cold intolerance Gastrointestinal: Denies: Abdominal pain, Nausea, Vomiting Genitourinary: Denies: Incontinence, Retention Musculoskeletal: Denies: Arthralgia, Back pain Skin: Denies: Bruising, Change in color Neurological: Reports: Headache, Seizure. Denies: Abnormal gait, Confusion Psychiatric: Reports: Anxiety Hematological/Lymphatic: Denies: Anemia, Blood Clots Past Medical History - SOCIAL HISTORY Smoking Status: Former smoker Drug Use Detail:: Other - RESPIRATORY Hx Respiratory Disorders: No - CARDIOVASCULAR Hx Cardio Disorders: No - NEURO Hx Neuro Disorders: No - GI Hx GI Disorders: No - Hx Genitourinary Disorders: No - ENDOCRINE Hx Endocrine Disorders: No - MUSCULOSKELETAL Hx Musculoskeletal Disorders: No - PSYCH Hx Psych Problems: Yes Hx Anxiety: Yes - HEMATOLOGY/ONCOLOGY Hx Hematology/Oncology Disorders: No Comment:: bi-polar Family Medical History Hx Alcohol Use: Father H&P Meds/Allergies - Allergies Allergies: Allergies Allergy/AdvReac Type Severity Reaction Status Date / Time acetaminophen [From Tylenol] Allergy ITCHING Verified 02/05/19 12:00 codeine Allergy ITCHING Verified 02/05/19 12:00 ibuprofen [From Motrin] Allergy ITCHING Verified 02/05/19 12:00 tramadol Allergy HIVES Verified 02/05/19 12:00 - Home Medications Previous Rx's Medication Instructions Recorded Propranolol HCl 20 mg PO BID #60 tablet 03/09/19 - Active Medications Active Medications: Current Medications Sodium Chloride () 1,000 mls @ 0 mls/hr IV .Q0M [facility] Last Infusion: 03/08/19 23:21 Dose: Infused Documented by: Sodium Chloride () 1,000 mls @ 250 mls/hr IV .Q4H [facility] Last Admin: 03/09/19 05:02 Dose: 250 mls/hr Documented by: Non-Formulary Medication (Clonazepam [Clonazepam]) 0.5 mg PO ASDIR [facility] Patient Own Med: [place] Carbonate 450 Mg Tablet 1 each PO BID [facility] Patient Own Med: Cephalexin 500 Mg Cap 1 each PO Q6H [facility] Last Admin: 03/09/19 06:22 Dose: 1 each Documented by: Physical Exam - Vital Signs Vital Signs: Vital Signs - Last 24 Hrs Temp Pulse Pulse Resp BP Pulse Ox 03/09/19 07:00 98.0 F 103 H 16 142/80 98 03/09/19 03:00 98.0 F 102 H 16 142/85 96 03/09/19 00:17 98.0 F 135 H 20 152/94 94 L 03/08/19 22:45 136 H 20 100 03/08/19 21:56 137 H 15 118/71 97 03/08/19 21:16 129 H 20 121/85 95 03/08/19 20:35 97.9 F 148 H 22 131/81 93 L - General General Appearance: Alert, Oriented x3, Cooperative, Anxious Limitations: No limitations - Head Head exam: Normocephalic, Normal inspection Head exam detail: Abrasion (healing cellulitis to forehead). negative: Contusion, Whiting's sign, General tenderness, Hematoma, Laceration - Eye Eye exam: Normal appearance. negative: Conjunctival injection, Periorbital swelling, Periorbital tenderness, Scleral icterus - ENT ENT exam: Mucous membranes moist Ear exam: negative: Auricular hematoma, Auricular trauma Nasal Exam: negative: Active bleeding, Discharge, Dried blood, Foreign body Mouth exam: negative: Drooling, Laceration, Muffled voice, Tongue elevation - Neck Neck exam: Normal inspection. negative: Meningismus, Tenderness - Respiratory Respiratory exam: Normal lung sounds bilaterally. negative: Rales, Respiratory distress, Rhonchi, Stridor - Cardiovascular Cardiovascular Exam: Normal rhythm, Normal heart sounds, Tachycardia Peripheral Pulses: 2+: Radial (R), Radial (L) - GI/Abdominal GI/Abdominal exam: Soft. negative: Rebound, Rigid, Tenderness - Rectal Rectal exam: Deferred - exam: Deferred - Extremities Extremities exam: Normal inspection. negative: Pedal edema, Tenderness - Back Back exam: Denies: CVA tenderness (R), CVA tenderness (L) - Neurological Neurological exam: Alert, Normal gait, Oriented X3 - Psychiatric Psychiatric exam: Normal affect, Normal mood - Skin Skin exam: Normal color. negative: Abrasion Type of lesion: negative: abrasion Results - Labs Result Diagrams: 03/08/19 20:40 03/09/19 07:30 Labs Last 24 Hours: Laboratory Results - last 24 hr 03/08/19 03/08/19 03/08/19 20:40 20:40 20:40 WBC 9.8 RBC 5.00 Hgb 15.2 Hct 44.0 MCV 88.0 MCH 30.4 MCHC 34.5 RDW 13.3 Plt Count 384 MPV 9.5 Gran % 68.2 Lymphocytes % 20.1 Monocytes % 11.1 H Eosinophils % 0.4 Basophils % 0.2 Absolute Neutrophils 6.70 Sodium 136 Potassium 4.2 Chloride 95 L Carbon Dioxide 22.0 Anion Gap 19.0 H BUN 10 Creatinine 1.0 Estimated GFR > 60 Random Glucose 134 H Lactic Acid Cancelled 6.1 H Calcium 10.5 H Total Bilirubin 0.20 AST 28 ALT 22 Alkaline Phosphatase 81 Creatine Kinase 294 Total Protein 7.9 Albumin 4.7 Globulin 3.2 Albumin/Globulin Ratio 1.5 Urine Opiates Screen Ur Oxycodone Screen Urine Methadone Screen Ur Propoxyphene Screen Ur Barbituates Screen Ur Tricyclics Screen Ur Phencyclidine Scrn Ur Amphetamine Screen U Methamphetamines Scrn U Benzodiazepines Scrn Urine Cocaine Screen Urine Cannabis Screen Ethyl Alcohol 03/08/19 03/09/19 03/09/19 21:35 07:30 07:30 WBC RBC Hgb Hct MCV MCH MCHC RDW Plt Count MPV Gran % Lymphocytes % Monocytes % Eosinophils % Basophils % Absolute Neutrophils Sodium 140 Potassium 4.3 Chloride 105 Carbon Dioxide 24.0 Anion Gap 11.0 BUN 7 Creatinine 0.8 Estimated GFR > 60 Random Glucose 85 Lactic Acid 0.7 Calcium 9.3 Total Bilirubin AST ALT Alkaline Phosphatase Creatine Kinase Total Protein Albumin Globulin Albumin/Globulin Ratio Urine Opiates Screen Not detected Ur Oxycodone Screen Not detected Urine Methadone Screen Not detected Ur Propoxyphene Screen Not detected Ur Barbituates Screen Not detected Ur Tricyclics Screen Not detected Ur Phencyclidine Scrn Not detected Ur Amphetamine Screen Not detected U Methamphetamines Scrn Not detected U Benzodiazepines Scrn Not detected Urine Cocaine Screen Not detected Urine Cannabis Screen Not detected Ethyl Alcohol 0.000 VTE H&P Assessment - Risk for VTE Risk for VTE: No Risk Level: Low Risk Assessment Date: 03/09/19 Risk Assessment Time: 09:30 VTE Orders Placed or Will Be Placed: No VTE Reason for No Prophylaxis: Not Indicated Plan - Detailed Diagnosis and Plan (1) Tonic clonic seizures Status: Acute Base Code: G40.409 - OTH GENERALIZED EPILEPSY, NOT INTRACTABLE, W/O STAT EPI Comment: 03/09/19: - Witnessed tonic-clonic seizure lasting 30 sec - Post-ictal per EMS reports - No seizure history - Notes stopping Klonopin 4-5 days SHERIFF, reports using benzos intermittently for several years. Has been taking them daily for the past several months - Reports Meth and Cocaine use, last use 3 days ago - Seizure precautions - Likely due to Benzo withdraw vs drug use (2) Benzodiazepine withdrawal Status: Acute Qualifiers: Complication of substance-induced condition: with unspecified complication Qualified Code(s): F13.239 - Sedative, hypnotic or anxiolytic dependence with withdrawal, unspecified Base Code: F13.239 - SEDATV/HYP/ANXIOLYTC DEPENDENCE W WITHDRAWAL, UNSP Com ment: 03/09/19: - Reports last Klonopin dose 3-4 days ago, taking medication BID for the past several months - Reports intermittent benzo use for several years - Tachycardic - Anxious (3) Tachycardia Status: Acute Base Code: R00.0 - TACHYCARDIA, UNSPECIFIED Comment: 03/09/19: - HR 100-140s - Mild improvement with 2L NS - Denies chest pain or shortness of breath - Worsening anxiety x 3 days since being off benzo - Trial Propranolol 20mg BID for anxiety and tachycardia (4) Anxiety Status: Acute Base Code: F41.9 - ANXIETY DISORDER, UNSPECIFIED Comment: 03/09/19 - Avoid benzo use due to other drug use and irregular follow-up - Trial Propranolol 20mg BID - Follow-up with [facility] (5) Bipolar 1 disorder Status: Acute Base Code: F31.9 - BIPOLAR DISORDER, UNSPECIFIED Comment: 03/09/19: - Recent inpatient psych admission about 5 weeks ago - Started on [place], level pending - Reports daily compliance with medication - Managed by [facility] (6) DVT prophylaxis Status: Acute Base Code: Z29.9 - ENCOUNTER FOR PROPHYLACTIC MEASURES, UNSPECIFIED Comment: 03/09/19: - Low risk - Ambulating ad joaquin within the room (7) Full code status Status: Acute Base Code: Z78.9 - OTHER SPECIFIED HEALTH STATUS Comment: 03/09/19: - Full code this admission
--- NOTE | 2019-03-09 10:15 | Discharge Summary ---
Providers Discharge Summary Date: 03/09/19 Date of admission: 03/08/19 23:55 Expected Date of Discharge: 03/09/19 Attending physician: INDIGO APONTE Primary care physician: none Physical Exam - Vital Signs Vital Signs: Vital Signs - Last 24 Hrs Temp Pulse Pulse Resp BP Pulse Ox 03/09/19 07:00 98.0 F 103 H 16 142/80 98 03/09/19 03:00 98.0 F 102 H 16 142/85 96 03/09/19 00:17 98.0 F 135 H 20 152/94 94 L 03/08/19 22:45 136 H 20 100 03/08/19 21:56 137 H 15 118/71 97 03/08/19 21:16 129 H 20 121/85 95 03/08/19 20:35 97.9 F 148 H 22 131/81 93 L - General General Appearance: Alert, Oriented x3, Cooperative, Anxious Limitations: No limitations - Head Head exam: Normocephalic, Normal inspection Head exam detail: Abrasion (forehead, reports horse injury, had 9 day inpt stay for cellulitis). negative: Contusion, Whiting's sign, General tenderness, Hematoma, Laceration - Eye Eye exam: Normal appearance. negative: Conjunctival injection, Periorbital swelling, Periorbital tenderness, Scleral icterus - ENT ENT exam: Mucous membranes moist Ear exam: negative: Auricular hematoma, Auricular trauma Nasal Exam: negative: Active bleeding, Discharge, Dried blood, Foreign body Mouth exam: negative: Drooling, Laceration, Muffled voice, Tongue elevation - Neck Neck exam: Normal inspection. negative: Meningismus, Tenderness - Respiratory Respiratory exam: Normal lung sounds bilaterally. negative: Rales, Respiratory distress, Rhonchi, Stridor - Cardiovascular Cardiovascular Exam: Normal rhythm, Normal heart sounds, Tachycardia Peripheral Pulses: 2+: Radial (R), Radial (L) - GI/Abdominal GI/Abdominal exam: Soft. negative: Rebound, Rigid, Tenderness - Rectal Rectal exam: Deferred - exam: Deferred - Extremities Extremities exam: Normal inspection. negative: Pedal edema, Tenderness - Back Back exam: Denies: CVA tenderness (R), CVA tenderness (L) - Neurological Neurological exam: Alert, Normal gait, Oriented X3 - Psychiatric Psychiatric exam: Anxious - Skin Skin exam: Normal color. negative: Abrasion Type of lesion: negative: abrasion Hospitalization - Hospitalization Admission Diagnosis: Benzodiazipine withdrawal. Generalized Tonic-Clonic Seizure - Problem List/Discharge Diagnosis (1) Tonic clonic seizures Status: Acute Base Code: G40.409 - OTH GENERALIZED EPILEPSY, NOT INTRACTABLE, W/O STAT EPI Comment: 03/09/19: - Witnessed tonic-clonic seizure lasting 30 sec - Post-ictal per EMS reports - No seizure history - Head CT negative - Notes stopping Klonopin 4-5 days [employer], reports using benzos intermittently for several years. Has been taking them daily for the past several months - Reports Meth and Cocaine use, last use 3 days ago - Seizure precautions - Likely due to Benzo withdraw vs drug use (2) Bipolar 1 disorder Status: Acute Base Code: F31.9 - BIPOLAR DISORDER, UNSPECIFIED Comment: 03/09/19: - Recent inpatient psych admission about 5 weeks ago - Started on Lavinia, level pending - Reports daily compliance with medication - Managed by [facility] (3) Tachycardia Status: Acute Base Code: R00.0 - TACHYCARDIA, UNSPECIFIED Comment: 03/09/19: - HR 100-140s - Mild improvement with 2L NS - Denies chest pain or shortness of breath - Worsening anxiety x 3 days since being off benzo - Trial Propranolol 20mg BID for anxiety and tachycardia (4) Benzodiazepine withdrawal Status: Acute Discharge Diagnosis: Complication of substance-induced condition: with unspecified complication Qualified Code(s): F13.239 - Sedative, hypnotic or anxiolytic dependence with withdrawal, unspecified Base Code: F13.239 - SEDATV/HYP/ANXIOLYTC DEPENDENCE W WITHDRAWAL, UNSP Comment: 03/09/19: - Reports last Klonopin dose 3-4 days ago, taking medication BID for the past several months - Reports intermittent benzo use for several years - Tachycardic - Anxious (5) Anxiety Status: Acute Base Code: F41.9 - ANXIETY DISORDER, UNSPECIFIED Comment: 03/09/19 - Avoid benzo use due to other drug use and irregular follow-up - Trial Propranolol 20mg BID - Follow-up with [facility] (6) DVT prophylaxis Status: Acute Base Code: Z29.9 - ENCOUNTER FOR PROPHYLACTIC MEASURES, U NSPECIFIED Comment: 03/09/19: - Low risk - Ambulating ad joaquin within the room (7) Full code status Status: Acute Base Code: Z78.9 - OTHER SPECIFIED HEALTH STATUS Comment: 03/09/19: - Full code this admission - Hospitalization Course Disposition: Home, Self-Care Hospital Course: 23 year old male patient presented to ED after having witnessed seizure activity. Patient reports no history of seizures in the past. Patient's seizure was witnessed by his father, lasting approximately 30 seconds. Patient was post-ictal upon EMS arrival. Patient denied any injury from the seizure. Patient has had a couple recent hospital admissions. He had a psychiatric admission over a month ago, where he was started on Lavinia and Klonopin for Bipolar and anxiety. Patient was then admitted to [facility] 10 days ago for ce llulitis of the face. Patient states he has been out of the Klonopin for 3-4 days. Has noted increased anxiety, shaking, and tremors since then. Patient reports intermittent benzo use for several years for treatment of mental illness. Patient does not currently have a PCP, has his medications managed by [facility]. Patient also admits to occasional meth and cocaine use, with his last use 3 days ago. 03/09/19: A&O x 4, reports no further seizure activity. Denies any neuro deficits. Seizure likely due to benzo withdraw vs drug use. Counseled on dangers of abruptly withdrawing medication and avoiding drug use. Starting Propranolol 20mg BID for anxiety, follow-up with [facility]. Procedures: Imaging and X-Rays 03/08/19 20:36 HEAD WO CONTRAST [CT] Stat Cardiology Procedures 03/08/19 20:36 EKG NOW 03/09/19 00:17 Sales Support Technician .Continuous Abnormal Labs: Abnormal Lab Results 03/08/19 03/08/19 03/08/19 Range/Units 20:40 20:40 20:40 Monocytes % 11.1 H (0-9) % Chloride 95 L (98-107) mmol/L Anion Gap 19.0 H (7-16) Random Glucose 134 H (74-109) mg/dL Lactic Acid 6.1 H (0.5-2.2) mmol/L Calcium 10.5 H (8.6-10.0) mg/dL Condition at Discharge: (2) Stable Discharge Medications - Discharge Medications Prescriptions: Propranolol HCl 20 mg PO BID #60 tablet Home Medications: Ambulatory Orders Lavinia Carbonate 300 mg PO BID 02/05/19 [Last Taken Unknown] Propranolol HCl 20 mg PO BID #60 tablet 03/09/19 [Last Taken Unknown] Discharge Plan - Discharge Instructions Activity at Discharge: Increase Activity as Tolerated Diet at Discharge: Regular Diet Instructions: New-Onset Seizure in Adults (DC) Additional Instructions: -Start taking the Propranolol 1 tab twice a day for anxiety -Avoid any further benzodiazepines or drug use, as this can lead to further seizures -Follow-up with [facility] -Call the [facility] to establish care with a primary doctor ([phone]) -Return to ED for any further seizure activity Quality Measures - Quality Measures Quality Measures: Documentation of Current Medications in Medical Record, Screening for High Blood Pressure and F/U Documented - Current Medications Quality Measure: Measure #130: Documentation of Current Medications Documentation of Current Medications: <Current Medications Documented/Reviewed> [G8427] - Blood Pressure Screening Quality Measure: Screening for High Blood Pressure and Follow-Up Documented Does Patient Have Any of the Following: No Blood Pressure Classification: Hypertensive Reading Systolic Measurement: 144 Diastolic Measurement: 69 Screening for High Blood Pressure: < Pre-Hypertensive BP, F/U Documented > [G8950] Pre-Hypertensive Follow-up Interventions: Referral to alternative/primary care provider. - Elder Abuse Suspicion Index EASI Reference Information: Zbigniew GONZALEZ, Hannah C, Devan D, Coty M.Development and validation of a tool to assist physicians identification of elder abuse: The Elder Abuse Suspicion Index (EASI ). Journal of Elder Abuse and Neglect, 2008; 20 (3): 276-300.
== END 2019-03-09 11:00 | disposition home or self-care (01) ==
LOC: ER 20:33 → MEDSURG 23:55
PROVIDERS: ADMIT Internal Medicine; ATTEND Internal Medicine
DX: G40.409 Other generalized epilepsy and epileptic syndromes, not intractable, without status epilepticus (principal); F19.230 Other psychoactive substance dependence with withdrawal, uncomplicated; R00.0 Tachycardia, unspecified; F31.9 Bipolar disorder, unspecified; F41.9 Anxiety disorder, unspecified; Z87.891 Personal history of nicotine dependence
CPT/HCPCS: 82550; 83605 ×2; 85025; 80048; 80053; 80305; 70450; 93005; 93010; G0378 ×2; G0480; J2060; 80320; 96365; 96366; 99220; 99285; J7030